=== PATIENT | female | born 1955 | race Hispanic/Latino ===

== ENCOUNTER 2016-07-16 14:48 | Outpatient (CLI) | payer BC ==
--- NOTE | 2016-07-16 16:54 | XRay Report ---
LEFT KNEE RADIOGRAPHS: INDICATION: Diabetes mellitus type 2. COMPARISON: None similar. FINDINGS: AP, oblique and straight lateral left knee radiographs demonstrate intact bony articulation. Mild degenerative spurring, more so involving the tibial spines and the superior patellar pole. Multiple surgical karina project in the soft tissues medial to proximal tibia. No definite suprapatellar effusion, to the extent assessed. Osteopenia not excluded. CONCLUSION: Mild left knee degenerative changes and few postsurgical changes medially without acute radiographic abnormality. Please correlate. Thank you for the opportunity to participate in this patient's care.
== END 2016-07-16 14:49 | disposition home or self-care (01) ==
LOC: SPVIMAG 14:48
PROVIDERS: ATTEND Internal Medicine
DX: E11.9 Type 2 diabetes mellitus without complications (principal); M85.88 Other specified disorders of bone density and structure, other site